=== PATIENT | male | born 1955 | race Caucasian/White ===

== ENCOUNTER 2017-10-08 20:28 | Emergency (ER) | payer OTHER ==
[~2017-10-08] VITALS: Ht 167.6 cm; Wt 79.4 kg
[~2017-10-08 20:28] MED LIST: BYSTOLIC 5 MG5 M1 PO; FLOMAX0.4 MG PO; NORCO 5-325 TA1 EACH PO; TORADOL 10 MG T10 MG PO; UROCIT-K10 ME1 PO; ZOFRAN ODT4 MG PO
[2017-10-08 21:11] LABS: URINE BILIRUBIN NEGATIVE (Negative); URINE BLOOD 2+ (Negative); URINE CLARITY CLEAR; URINE COLOR YELLOW; URINE GLUCOSE-RANDOM* NEGATIVE (Negative); URINE KETONES NEGATIVE (Negative); URINE LEUKOCYTES-REFLEX NEGATIVE (Negative); URINE NITRITE-REFLEX NEGATIVE (Negative); URINE PROTEIN (DIPSTICK) NEGATIVE (Negative); URINE SPECIFIC GRAVITY <= 1.005 (1.005-1.035); URINE UROBILINOGEN 0.2 E.U./dl (0.2-1.0)
[2017-10-08 21:19] LABS: CASTS None Seen /LPF (None Seen); SQUAMOUS 0-3 Few /LPF (0-3)
[2017-10-08 21:20] LABS: BACTERIA-REFLEX None Seen /HPF (None Seen); CRYSTALS None Seen /LPF (None Seen); URINE RBC 3-10 Few /HPF (0-2); URINE WBC-REFLEX None Seen /HPF (0-5)
[2017-10-08 22:31] LABS: ABSOLUTE NEUTROPHILS 4.2 thou/uL (1.4-8.2); BASOPHILS 0.4 % (0.0-2.0); HEMATOCRIT 43.9 % (42.0-52.0); HEMOGLOBIN 15.3 gm/dL (14.0-18.0); LYMPHOCYTES 29.2 % (24.0-44.0); MCH 32.1 pg (26.0-34.0); MCHC 34.8 g/dL (28.0-37.0); MCV 92.3 fL (80.0-100.0); MONOCYTES 10.2 % (1.0-8.0); PLATELET COUNT 224 thou/uL (150-400); POLYS 59.2 % (36.0-66.0); RBC 4.75 mil/uL (4.50-6.00); RDW 13.4 % (10.5-14.5)
[2017-10-08 22:39] LABS: ANION GAP 9 mmol/L (7-16); BUN 15 mg/dL (7-18); CALCIUM 8.9 mg/dL (8.5-10.1); CHLORIDE 107 mmol/L (98-107); CO2 25 mmol/L (21-32); GLUCOSE 96 mg/dL (74-106); POTASSIUM 4.3 mmol/L (3.5-5.1); SODIUM 141 mmol/L (136-145)
[2017-10-08 22:45] LABS: ALBUMIN 3.7 g/dL (3.4-5.0); DIRECT BILIRUBIN < 0.1 mg/dL (<0.1-0.3); LIPASE 262 U/L (73-393); SGOT 24 U/L (15-37); SGPT 37 U/L (30-65); TOTAL BILIRUBIN 0.4 mg/dL (<0.1-1.0); TOTAL PROTEIN 7.1 g/dL (6.4-8.2)
[2017-10-08] MEDS ORDERED: NORCO 5-325 TA1 EACH PO (23:31)
[2017-10-08 23:51] VITALS: BP 139/68
[2018-03-30] MEDS ORDERED: NEURONTIN 300300 M1 PO (09:49)
[2018-03-30] MEDS ORDERED: NORCO 5-325 TA1 EACH PO (09:49)
[2018-03-30] MEDS ORDERED: SENNA-S TABLET1 EACH PO (09:49)
== END 2017-10-08 23:50 | disposition home or self-care (01) ==
LOC: ER 20:28
PROVIDERS: Emergency Medicine
DX: R10.31 Right lower quadrant pain (principal); R31.9 Hematuria, unspecified; I10 Essential (primary) hypertension; Z88.2 Allergy status to sulfonamides

== ENCOUNTER → 2017-12-16 | Outpatient (CLI) | payer OTHER ==
[~2017-12-16] VITALS: Ht 165.1 cm; Wt 79.4 kg
--- NOTE | ~2017-12-16 | P ---
[facility] [place] [address] PROCEDURE REPORT Name: ANNETTE MEZA III Room #: REG [facility]#: [id number] Admission: 12/16/17 Attend Phys: Chano Islas MD Discharge: Date of : 51 Report #: [id number] THIS REPORT FOR: //name// CC: Chano WOODARD BRIEF HISTORY: The patient is a 62-year-old male with a family history of colon cancer. PREOPERATIVE DIAGNOSIS: Family history of colon cancer. POSTOPERATIVE DIAGNOSES: 1. Colon polyps. 2. Moderate diverticulosis coli, greater left colon than right colon. 3. Moderate internal hemorrhoids. MEDICATIONS: Deep sedation with propofol per anesthesia. SPECIMENS: 1. Diminutive polyp, proximal ascending colon. 2. Diminutive polyp, proximal transverse colon. ESTIMATED BLOOD LOSS: 3 mL. PROCEDURE: Colonoscopy to the cecum and terminal ileum with biopsy. FINDINGS: Prior to propofol sedation, the procedure of the colonoscopy was discussed with the patient as well as potential risks and its complications. He indicates he understands and desires to proceed. With the patient in the left lateral decubitus position, digital examination was completed which revealed no abnormalities. Subsequently, the [employer] video colonoscope was introduced in the rectum and advanced under direct vision to the cecum. Done with minimal difficulties. The cecum was identified by the ileocecal valve and the appendiceal orifice. I was able to visualize the distal segment of the terminal ileum, which was inspected and noted to be unremarkable. At that point, the scope was slowly withdrawn and careful circumferential views were obtained. Upon slow withdrawal of the scope, the prep was good. The mucosa was within normal limits, normal vascular pattern and normal light reflex. As we withdrew the scope, he was noted to have normal appearing colonic mucosa. In the proximal ascending colon, a diminutive polyp was seen and removed by biopsy. The scope was further withdrawn into the proximal transverse colon. Another diminutive polyp was seen and removed by biopsy. As we withdrew the scope, in the remainder of the colon no additional polyps were seen; however, small diverticula were seen scattered about the colon, but most notably in the sigmoid colon. They were actually fairly small diverticula. There was [facility] [address] [place] [address] PROCEDURE REPORT Name: ANNETTE EMZA III Room #: REG [facility].#: [id number] Admission: 12/16/17 Attend Phys: Chano Islas MD Discharge: Date of : 51 Report #: [id number] no endoscopic evidence of diverticulitis. The scope was further withdrawn and no additional abnormalities were seen. The scope was withdrawn in the rectum and no abnormalities were noted until upon retroflexion, small internal hemorrhoids were seen. The scope was withdrawn. The patient tolerated the procedure well. CONDITION OF THE PATIENT UPON DISCHARGE: Following procedure, the patient drowsy, arousable, conversant and will be discharged to home when fully ambulatory. INSTRUCTIONS TO THE PATIENT AND FAMILY AT THE TIME OF DISCHARGE: We will follow up on the path of the polyps. Given his history, we will have him return in 5 years for high risk screening colonoscopy. He will otherwise return to the care of Liberty Mendiola, nurse practitioner. Last colonoscopy was approximately 6 years ago. Withdrawal time from the cecum was 13 minutes and 37 seconds. <ELECTRONICALLY SIGNED> By: Chano Islas MD 12/16/17 [id number] Chano Islas MD /nt
== END | disposition home or self-care (01) ==
LOC: GI 06:32
DX: Z12.11 Encounter for screening for malignant neoplasm of colon (principal); D12.2 Benign neoplasm of ascending colon; D12.3 Benign neoplasm of transverse colon; K57.30 Diverticulosis of large intestine without perforation or abscess without bleeding; K64.8 Other hemorrhoids; I10 Essential (primary) hypertension; Z87.442 Personal history of urinary calculi; Z98.890 Other specified postprocedural states; Z88.2 Allergy status to sulfonamides; Z79.899 Other long term (current) drug therapy; Z80.0 Family history of malignant neoplasm of digestive organs
CPT/HCPCS: 62110; 62900

== ENCOUNTER → 2018-10-12 | Outpatient (CLI) | payer OTHER ==
[~2018-10-12] MED LIST changes: +NEURONTIN 300300 M1 PO; +SENNA-S TABLET1 EACH PO
[2018-10-12 07:53] LABS: CREATININE 1.1 mg/dL (0.7-1.3)
== END ==
LOC: CAT 07:12
PROVIDERS: Surgery
DX: K57.30 Diverticulosis of large intestine without perforation or abscess without bleeding (principal); N20.0 Calculus of kidney; N28.1 Cyst of kidney, acquired; N40.0 Benign prostatic hyperplasia without lower urinary tract symptoms

== ENCOUNTER → 2020-11-29 | Outpatient (CLI) | payer OTHER, MEDICARE | LOC: RAD 16:13 | PROVIDERS: ATTEND Nurse Practitioner | DX: R63.4 Abnormal weight loss (principal); R68.89 Other general symptoms and signs ==